=== PATIENT | male | born 1980 | race Caucasian/White ===

== ENCOUNTER → 2016-08-30 | Outpatient (CLI) | payer OTHER ==
--- NOTE | 2016-08-30 17:29 | DIAGNOSTIC IMAGING REPORT ---
PROCEDURE: XR LUMBAR SPINE 2 OR 3 VIEWS INDICATION: SCIATICA TECHNIQUE: Three views of the lumbar spine COMPARISON: None. FINDINGS: Five lumbar-type vertebral bodies are present. Normal vertebral body height without fracture. There is straightening of the normal lumbar lordosis. L5-S1 disc level is suboptimally seen and there may be a mild to moderate L5 on S1 retrolisthesis secondary to what could be a congenital diminutive disc at this level. Disc spacing is otherwise normal. No significant endplate or facet joint degeneration. The visible osseous pelvis and bowel gas pattern are normal. IMPRESSION: 1. Intact lumbar the vertebral bodies. 2. There may be a congenitally diminutive disc space at L5-S1 with spondylolisthesis. 3. An MRI could be considered for ongoing symptoms following conservative management.
== END ==
LOC: XR SRH 16:12
DX: M54.31 Sciatica, right side (principal)

== ENCOUNTER 2016-10-03 13:33 | Outpatient (CLI) | payer OTHER ==
--- NOTE | 2016-10-03 15:16 | DIAGNOSTIC IMAGING REPORT ---
PROCEDURE: MR LUMBAR SPINE W/O CONTRAST INDICATION: LUMBAR RADICULOPATHY TECHNIQUE: Noncontrast T1, T2, and STIR sagittal images. T1 and T2 axial images. COMPARISON: Lumbar spine x-ray 08/30/2016. FINDINGS: Grade 1 L5-S1 retrolisthesis. Schmorl's nodes of throughout the lumbar spine. No fracture or suspicious osseous lesion. Small T12 bony hemangioma. Normal conus. Paraspinal soft tissues are normal. L1-2: Normal appearance. L2-3: Mild desiccation and mild right foraminal disc bulging resulting in mild right foraminal stenosis. No spinal stenosis. L3-4: Minor disc bulging and mild facet arthropathy resulting in mild right foraminal stenosis. No spinal stenosis. L4-5: Small broad-based disc bulge/spur complex with mild bilateral of foraminal stenosis. No spinal stenosis. L5-S1: Large right paracentral disc herniation with mild displacement of the right S1 nerve root and minor compression of the thecal sac. There is mild to moderate bilateral foraminal stenosis. No spinal stenosis. IMPRESSION: 1. Mild right L2-3, right L3-4 and bilateral L4-5 foraminal stenosis 2. Large L5-S1 right paracentral disc herniation with displacement of the right S1 nerve root with minor compression of the thecal sac. There is also mild to moderate bilateral foraminal stenosis
== END 2016-10-03 23:00 | disposition home or self-care (01) ==
LOC: MRI SRH 13:33
DX: M48.06 Spinal stenosis, lumbar region (principal); M51.27 Other intervertebral disc displacement, lumbosacral region; M48.07 Spinal stenosis, lumbosacral region